=== PATIENT | female | born 1945 | race Caucasian/White ===

== ENCOUNTER → 2016-11-15 | Day surgery (SDC) | payer MEDICARE ==
[~2016-11-15] MED LIST: ACETAMINOPHEN/HYDROcodone 325 MG/7.5 MG TAB ONE; BUPIVACAINE/EPINEPHRINE 0.25% PF 30 ML VIAL INFIL ONE; KETOROLAC TROMETHAMINE 30 MG/ML (IVP) VIAL IV PUSH ONE; LACTATED RINGER'S 1000 ML INJ 1,000 ML ONE; MIDAZOLAM HCL 2 MG/2 ML VIAL ONE; MORPHINE SULFATE 4 MG/ML INJ ONE; ONDANSETRON HCL 4 MG/2 ML VIAL IV PUSH ONE; PROPOFOL 200 MG/20 ML AMP IV ONE; ceFAZolin INJ 1,000 MG VIAL ONE
--- NOTE | 2016-11-15 18:30 | TN ---
cc: JOSE MANUEL DOSS MD DATE OF SURGERY 11/15/2016 ATTENDING PHYSICIAN/SURGEON Dr. Doss PREOPERATIVE DIAGNOSIS Right knee torn lateral meniscus, posterior medial cyst. POSTOPERATIVE DIAGNOSIS Right knee torn lateral meniscus, posterior medial cyst. PROCEDURE Right knee arthroscopy with partial lateral meniscectomy, aspiration of posterior medial cyst. PROCEDURE IN DETAIL Informed consent obtained. The patient taken to the operating room and placed in the supine position on the operating table. She was administered general anesthesia by Dr. Salazar the anesthesia Department. A tourniquet was applied to the right thigh. The right leg was prepped with Betadine soap, followed by Betadine paint and draping commenced in standard fashion with sterile down sheets, sterile U drape, sterile stockinette was applied to the foot and calf. This was covered with a Coban and an extremity drape was then applied. At that time a time-out was held and confirmed. The patient had been given one gram of Ancef prior to initiation of the operative procedure. At that time the tourniquet inflated to 300 mmHg. The leg was allowed to flex over the side of the operating table. An 18 gauge spinal needle was placed in the region of the transpatellar tendon portal. This region infiltrated with 4 cc of 0.25% Marcaine with epinephrine. Infiltration was also performed on the lateral infrapatellar portal and the medial infrapatellar portal region. A small incision was made with an 11-blade in the region of the trans patellar tendon portal, inflow cannula was placed, second incision was placed the region of the lateral infrapatellar portal the arthroscopic cannula was placed. Diagnostic arthroscopy commenced, medial compartment examined. The articular cartilage of the medial femoral condyle, medial tibial plateau appeared intact without significant damage. There was not an obvious tear noted in the medial meniscus. A medial parapatellar portal was established and a bur was introduced and the medial meniscus was probed and both the superior and inferior surfaces and no tears were identified. I do not see an obvious opening to a posterior cyst. At that time the knee was maneuvered over the intercondylar notch and the lateral compartment. Anterior and posterior cruciate ligaments looked good. The leg was placed in a figure four position. The lateral meniscus was examined. There was slight tearing near the posterior horn with a small flap, towards the anterior horn there was more extensive damage to the meniscal tissue. There were relatively no significant changes involving the lateral femoral condyle ___ tibial plateau, popliteus tendon appeared normal. Utilizing the shaver the partial lateral meniscectomy was performed with debridement of the anterior and posterior aspects of the lateral meniscus. At that time the scope was placed in posterior medial and posterolateral compartments. These appeared negative. The leg was extended. The ___ scope was placed suprapatellar pouch which appeared normal. Undersurface of the patella demonstrated some mild chondromalacia changes as did the trochlear groove. There were no pathologic plica seen, although, debridement of soft tissue in this area was performed. At that time the knee was thoroughly irrigated and suctioned. All cannulas were removed, each portal was closed with a single 4-0 nylon interrupted stitch. The posterior aspect of the knee was aspirated the posterior medial region. Approximately 7 cc of fluid was obtained at that time. Band-Aids, 4x4s, soft roll and Chad wrap were applied to the patient's knee and the tourniquet was deflated. Total tourniquet time was 32 minutes. The patient tolerated the procedure well and was then taken to the recovery room in stable condition. At the completion of the procedure sponge count, instrument count and needle counts were correct. Estimated blood loss was less than 10 cc. MD MARIA INES August/SVITLANA /2:55 PM /6:07 PM
== END | disposition home or self-care (01) ==
LOC: ESDC 12:02
PROVIDERS: ATTEND Orthopaedic Surgery
DX: S83.281A Other tear of lateral meniscus, current injury, right knee, initial encounter (principal)
CPT/HCPCS: 01400; 29881; J0690; J1885; J2250; J2270; J2405; J3010; J7120